=== PATIENT | female | born 1990 | race Caucasian/White ===

== ENCOUNTER 2017-02-06 09:48 | Observation (INO) | payer MEDICAID ==
[~2017-02-06 09:48] MED LIST: APAP325 M1 PO; COLACE100 MG PO; IBUPROFEN800 MG PO; PEPCID20 MG PO; PRENATAL VITAMI1 TAB PO; PRENATAL1 EACH
== END 2017-02-06 10:45 ==
LOC: LDR 09:48
PROVIDERS: ADMIT Obstetrics & Gynecology
DX: O47.03 False labor before 37 completed weeks of gestation, third trimester (principal); Z3A.28 28 weeks gestation of pregnancy

== ENCOUNTER 2017-02-20 16:04 | Observation (INO) | payer MEDICAID ==
[2017-02-20 16:50] LABS: URINE TOTAL PROTEIN-RANDOM 36.4 mg/dl (<11.8)
[2017-02-20 16:54] LABS: BASO % 0.1 % (0-2); EOS % 0.1 % (0-7); HCT-HEMATOCRIT 37.1 % (34.0-49.0); HGB-HEMOGLOBIN 12.7 gm/dl (12.0-15.5); IMMATURE GRANULOCYTES ABSOLUTE 0.03 tho/cmm (0-0.03); IMMATURE GRANULOCYTES PERCENT 0.2 % (0-0.3); LYMPH % 14.9 % (20-45); LYMPH ABSOLUTE COUNT 1.9 tho/cmm (0.8-4.5); MCH (MEAN CORPUSCULAR HGB) 28.9 pg (28.0-32.0); MCHC MEAN CORPUSCULAR HGB CONC 34.2 % (32.0-36.0); MCV (MEAN CELL VOLUME) 84.3 fl (82.0-96.0); MEAN PLATELET VOLUME 10.1 cmc (9.4-12.4); MONO % 4.9 % (0-12); MONOCYTE ABSOLUTE COUNT 0.6 tho/cmm (0.0-1.2); NEUTROPHIL ABSOLUTE COUNT 10.2 tho/cmm (1.6-8.0); NEUTROPHIL-AUTOMATED 10.2 tho/cmm (1.6-8.0); NEUTROPHILS % 79.8 % (40-80); PLATELET COUNT 242 tho/cmm (150-450); RED CELL DISTRIBUTION WIDTH 12.8 % (12.4-16.4); WHITE BLOOD COUNT 12.8 tho/cmm (4.0-10.0)
[2017-02-20] MEDS ORDERED: KLONOPIN0.5 M1 PO (17:07)
[2017-02-20] MEDS ORDERED: ZOLOFT50 M1 PO (17:08)
[2017-02-20 17:10] LABS: ALB/GLOB RATIO 0.7 (0.8-2.0); ALKALINE PHOSPHATASE 96 U/L (33-138); ALT/SGPT 22 U/L (12-78); ANION GAP 14 mmol/L (0-20); AST/SGOT 17 U/L (10-40); BILIRUBIN,TOTAL 0.2 mg/dl (0-1.5); BLOOD UREA NITROGEN 6 mg/dl (6-24); CALCIUM 8.1 mg/dl (8.5-10.5); CARBON DIOXIDE-VENOUS 24 mmol/L (22-32); CHLORIDE 105 mmol/l (96-110); CREATININE 0.52 mg/dl (0.50-1.10); GLUCOSE 73 mg/dL (70-110); POTASSIUM 3.6 mmol/L (3.7-5.1); SODIUM 139 mmol/L (135-145); eGFR VALUE FOR BLACK >90 mL/Min
[2017-02-20 17:16] LABS: URINE PRT/CR RATIO 0.27 Ratio (0.0-0.20)
[2017-02-21 21:17] LABS: URINE CREATININE MG/DAY 1610 mg/day (720-1510)
== END 2017-02-21 22:50 ==
LOC: LDR 16:04
PROVIDERS: Advanced Practice Midwife; ADMIT Registered Nurse Lactation Consultant
DX: O16.3 Unspecified maternal hypertension, third trimester (principal); F41.9 Anxiety disorder, unspecified; F32.9 Major depressive disorder, single episode, unspecified; F17.200 Nicotine dependence, unspecified, uncomplicated; Z79.899 Other long term (current) drug therapy; Z3A.28 28 weeks gestation of pregnancy; Z85.3 Personal history of malignant neoplasm of breast
CPT/HCPCS: J0702

== ENCOUNTER 2017-02-22 19:24 | Observation (INO) | payer MEDICAID ==
[~2017-02-22 19:24] MED LIST changes: +KLONOPIN0.5 M1 PO; +ZOLOFT50 M1 PO
[2017-02-22 20:24] LABS: URINE APPEARANCE CLEAR; URINE BILIRUBIN NEGATIVE (NEG); URINE BLOOD NEGATIVE (NEG); URINE COLOR YELLOW; URINE GLUCOSE (UA) LARGE (NEG); URINE KETONE SMALL (NEG); URINE LEUKOCYTE ESTERASE NEGATIVE (NEG); URINE NITRITE NEGATIVE (NEG); URINE PROTEIN MODERATE (NEG); URINE SPECIFIC GRAVITY 1.025 (1.003-1.030)
[2017-02-22 20:34] LABS: URINE AMORPHOUS 2+; URINE BACTERIA 1+; URINE RBC RARE /[HPF] (0-5); URINE WBC RARE /[HPF] (0-5)
[2017-02-22 20:38] LABS: BASO % 0.1 % (0-2); HCT-HEMATOCRIT 35.2 % (34.0-49.0); HGB-HEMOGLOBIN 11.9 gm/dl (12.0-15.5); IMMATURE GRANULOCYTES PERCENT 1.1 % (0-0.3); LYMPH % 12.3 % (20-45); LYMPH ABSOLUTE COUNT 2.2 tho/cmm (0.8-4.5); MCHC MEAN CORPUSCULAR HGB CONC 33.8 % (32.0-36.0); MCV (MEAN CELL VOLUME) 85.6 fl (82.0-96.0); MEAN PLATELET VOLUME 10.5 cmc (9.4-12.4); MONOCYTE ABSOLUTE COUNT 1.5 tho/cmm (0.0-1.2); NEUTROPHIL ABSOLUTE COUNT 14.3 tho/cmm (1.6-8.0); NEUTROPHIL-AUTOMATED 14.3 tho/cmm (1.6-8.0); NEUTROPHILS % 78.5 % (40-80); PLATELET COUNT 245 tho/cmm (150-450); RED BLOOD COUNT 4.11 mil/cmm (4.00-5.20); RED CELL DISTRIBUTION WIDTH 12.9 % (12.4-16.4); WHITE BLOOD COUNT 18.2 tho/cmm (4.0-10.0)
[2017-02-22 20:52] LABS: ALB/GLOB RATIO 0.7 (0.8-2.0); ALBUMIN 2.7 g/dl (3.5-5.0); ALKALINE PHOSPHATASE 82 U/L (33-138); ALT/SGPT 22 U/L (12-78); BILIRUBIN,TOTAL 0.2 mg/dl (0-1.5); BLOOD UREA NITROGEN 8 mg/dl (6-24); CALCIUM 8.3 mg/dl (8.5-10.5); CARBON DIOXIDE-VENOUS 26 mmol/L (22-32); CHLORIDE 104 mmol/l (96-110); CREATININE 0.66 mg/dl (0.50-1.10); GLUCOSE 84 mg/dL (70-110); SODIUM 140 mmol/L (135-145); eGFR VALUE FOR BLACK >90 mL/Min
[2017-02-22 20:57] LABS: ANION GAP 14 mmol/L (0-20); AST/SGOT 19 U/L (10-40); POTASSIUM 3.7 mmol/L (3.7-5.1)
== END 2017-02-23 09:38 ==
LOC: LDR 19:24
PROVIDERS: Obstetrics & Gynecology; ADMIT Obstetrics & Gynecology
DX: O14.03 Mild to moderate pre-eclampsia, third trimester (principal); Z3A.31 31 weeks gestation of pregnancy
CPT/HCPCS: G0378

== ENCOUNTER 2017-03-05 21:40 | Observation (INO) | payer MEDICAID ==
[2017-03-05 22:06] LABS: URINE BILIRUBIN NEGATIVE (NEG); URINE BLOOD SMALL (NEG); URINE GLUCOSE (UA) MODERATE (NEG); URINE KETONE NEGATIVE (NEG); URINE LEUKOCYTE ESTERASE NEGATIVE (NEG); URINE NITRITE NEGATIVE (NEG); URINE PROTEIN SMALL (NEG)
[2017-03-05 22:12] LABS: URINE APPEARANCE HAZY; URINE COLOR YELLOW
[2017-03-05 22:15] LABS: URINE BACTERIA 2+; URINE RBC 0-1 /[HPF] (0-5)
[2017-03-05 22:25] LABS: BASO % 0.1 % (0-2); EOS % 0.2 % (0-7); HCT-HEMATOCRIT 36.1 % (34.0-49.0); HGB-HEMOGLOBIN 12.2 gm/dl (12.0-15.5); IMMATURE GRANULOCYTES ABSOLUTE 0.06 tho/cmm (0-0.03); IMMATURE GRANULOCYTES PERCENT 0.4 % (0-0.3); LYMPH % 15.3 % (20-45); LYMPH ABSOLUTE COUNT 2.1 tho/cmm (0.8-4.5); MCHC MEAN CORPUSCULAR HGB CONC 33.8 % (32.0-36.0); MCV (MEAN CELL VOLUME) 85.7 fl (82.0-96.0); MEAN PLATELET VOLUME 10.4 cmc (9.4-12.4); MONO % 5.2 % (0-12); MONOCYTE ABSOLUTE COUNT 0.7 tho/cmm (0.0-1.2); NEUTROPHIL ABSOLUTE COUNT 10.5 tho/cmm (1.6-8.0); NEUTROPHIL-AUTOMATED 10.5 tho/cmm (1.6-8.0); NEUTROPHILS % 78.8 % (40-80); PLATELET COUNT 218 tho/cmm (150-450); RED BLOOD COUNT 4.21 mil/cmm (4.00-5.20); RED CELL DISTRIBUTION WIDTH 13.5 % (12.4-16.4); WHITE BLOOD COUNT 13.4 tho/cmm (4.0-10.0)
[2017-03-05 22:26] LABS: URINE TOTAL PROTEIN-RANDOM 14.4 mg/dl (<11.8)
[2017-03-05 22:36] LABS: URINE PRT/CR RATIO 0.13 Ratio (0.0-0.20)
[2017-03-05 22:38] LABS: ALB/GLOB RATIO 0.6 (0.8-2.0); ALBUMIN 2.8 g/dl (3.5-5.0); ALKALINE PHOSPHATASE 103 U/L (33-138); ALT/SGPT 22 U/L (12-78); ANION GAP 15 mmol/L (0-20); AST/SGOT 13 U/L (10-40); BILIRUBIN,TOTAL 0.2 mg/dl (0-1.5); BLOOD UREA NITROGEN 8 mg/dl (6-24); CALCIUM 8.6 mg/dl (8.5-10.5); CARBON DIOXIDE-VENOUS 24 mmol/L (22-32); CHLORIDE 106 mmol/l (96-110); CREATININE 0.55 mg/dl (0.50-1.10); GLUCOSE 104 mg/dL (70-110); POTASSIUM 3.6 mmol/L (3.7-5.1); SODIUM 141 mmol/L (135-145); eGFR VALUE FOR BLACK >90 mL/Min
== END 2017-03-05 23:09 ==
LOC: LDR 21:40
PROVIDERS: ADMIT Obstetrics & Gynecology
DX: O13.3 Gestational [pregnancy-induced] hypertension without significant proteinuria, third trimester (principal); Z3A.32 32 weeks gestation of pregnancy; O99.333 Smoking (tobacco) complicating pregnancy, third trimester; F17.210 Nicotine dependence, cigarettes, uncomplicated; Z98.890 Other specified postprocedural states

== ENCOUNTER 2017-03-06 17:17 | Observation (INO) | payer MEDICAID ==
[2017-03-06 18:07] LABS: URINE PRT/CR RATIO 0.24 Ratio (0.0-0.20); URINE TOTAL PROTEIN-RANDOM 9.9 mg/dl (<11.8)
[2017-03-06 18:32] LABS: BASO % 0.1 % (0-2); EOS % 0.1 % (0-7); HGB-HEMOGLOBIN 12.2 gm/dl (12.0-15.5); IMMATURE GRANULOCYTES ABSOLUTE 0.06 tho/cmm (0-0.03); IMMATURE GRANULOCYTES PERCENT 0.4 % (0-0.3); LYMPH % 13.3 % (20-45); LYMPH ABSOLUTE COUNT 1.9 tho/cmm (0.8-4.5); MCHC MEAN CORPUSCULAR HGB CONC 33.9 % (32.0-36.0); MCV (MEAN CELL VOLUME) 85.7 fl (82.0-96.0); MEAN PLATELET VOLUME 10.1 cmc (9.4-12.4); MONO % 5.4 % (0-12); MONOCYTE ABSOLUTE COUNT 0.8 tho/cmm (0.0-1.2); NEUTROPHIL ABSOLUTE COUNT 11.4 tho/cmm (1.6-8.0); NEUTROPHIL-AUTOMATED 11.4 tho/cmm (1.6-8.0); NEUTROPHILS % 80.7 % (40-80); PLATELET COUNT 203 tho/cmm (150-450); RED CELL DISTRIBUTION WIDTH 13.6 % (12.4-16.4); WHITE BLOOD COUNT 14.2 tho/cmm (4.0-10.0)
[2017-03-06 18:46] LABS: ALB/GLOB RATIO 0.6 (0.8-2.0); ALBUMIN 2.7 g/dl (3.5-5.0); ALKALINE PHOSPHATASE 99 U/L (33-138); ALT/SGPT 25 U/L (12-78); ANION GAP 14 mmol/L (0-20); AST/SGOT 13 U/L (10-40); BILIRUBIN,TOTAL 0.2 mg/dl (0-1.5); BLOOD UREA NITROGEN 9 mg/dl (6-24); CALCIUM 8.8 mg/dl (8.5-10.5); CARBON DIOXIDE-VENOUS 25 mmol/L (22-32); CHLORIDE 104 mmol/l (96-110); CREATININE 0.56 mg/dl (0.50-1.10); GLUCOSE 98 mg/dL (70-110); POTASSIUM 3.3 mmol/L (3.7-5.1); SODIUM 140 mmol/L (135-145); eGFR VALUE FOR BLACK >90 mL/Min
== END 2017-03-06 20:45 ==
LOC: LDR 17:17
PROVIDERS: ADMIT Registered Nurse Lactation Consultant
DX: O16.3 Unspecified maternal hypertension, third trimester (principal); O99.333 Smoking (tobacco) complicating pregnancy, third trimester; F17.210 Nicotine dependence, cigarettes, uncomplicated; O99.343 Other mental disorders complicating pregnancy, third trimester; F41.9 Anxiety disorder, unspecified; Z3A.32 32 weeks gestation of pregnancy; Z79.899 Other long term (current) drug therapy; Z98.890 Other specified postprocedural states

== ENCOUNTER 2017-03-12 02:03 | Observation (INO) | payer MEDICAID ==
[2017-03-12 02:18] LABS: URINE BILIRUBIN NEGATIVE (NEG); URINE BLOOD NEGATIVE (NEG); URINE GLUCOSE (UA) SMALL (NEG); URINE KETONE MODERATE (NEG); URINE LEUKOCYTE ESTERASE NEGATIVE (NEG); URINE NITRITE NEGATIVE (NEG); URINE PROTEIN SMALL (NEG); URINE SPECIFIC GRAVITY 1.025 (1.003-1.030)
[2017-03-12 02:21] LABS: URINE APPEARANCE CLEAR; URINE COLOR YELLOW
[2017-03-12 02:32] LABS: URINE MUCUS 2+
== END 2017-03-12 04:55 ==
LOC: LDR 02:03
PROVIDERS: ADMIT Obstetrics & Gynecology
DX: O47.03 False labor before 37 completed weeks of gestation, third trimester (principal); Z3A.33 33 weeks gestation of pregnancy; Z79.899 Other long term (current) drug therapy
CPT/HCPCS: J7030

== ENCOUNTER 2017-04-04 06:20 | Inpatient (IN) | payer MEDICAID ==
[2017-04-04 07:33] LABS: BASO % 0.2 % (0-2); EOS % 0.4 % (0-7); HCT-HEMATOCRIT 35.9 % (34.0-49.0); LYMPH % 16.5 % (20-45); LYMPH ABSOLUTE COUNT 1.9 tho/cmm (0.8-4.5); MCH (MEAN CORPUSCULAR HGB) 28.4 pg (28.0-32.0); MCHC MEAN CORPUSCULAR HGB CONC 33.4 % (32.0-36.0); MCV (MEAN CELL VOLUME) 84.9 fl (82.0-96.0); MEAN PLATELET VOLUME 10.8 cmc (9.4-12.4); MONO % 6.7 % (0-12); MONOCYTE ABSOLUTE COUNT 0.8 tho/cmm (0.0-1.2); NEUTROPHIL ABSOLUTE COUNT 8.7 tho/cmm (1.6-8.0); NEUTROPHIL-AUTOMATED 8.7 tho/cmm (1.6-8.0); NEUTROPHILS % 76.2 % (40-80); PLATELET COUNT 210 tho/cmm (150-450); RED BLOOD COUNT 4.23 mil/cmm (4.00-5.20); RED CELL DISTRIBUTION WIDTH 13.2 % (12.4-16.4); WHITE BLOOD COUNT 11.4 tho/cmm (4.0-10.0)
[2017-04-04 08:34] LABS: ALB/GLOB RATIO 0.6 (0.8-2.0); ALBUMIN 2.4 g/dl (3.5-5.0); ALKALINE PHOSPHATASE 126 U/L (33-138); ALT/SGPT 18 U/L (12-78); ANION GAP 16 mmol/L (0-20); AST/SGOT 13 U/L (10-40); BILIRUBIN,TOTAL 0.4 mg/dl (0-1.5); BLOOD UREA NITROGEN 6 mg/dl (6-24); CALCIUM 8.4 mg/dl (8.5-10.5); CARBON DIOXIDE-VENOUS 22 mmol/L (22-32); CHLORIDE 102 mmol/l (96-110); CREATININE 0.54 mg/dl (0.50-1.10); GLUCOSE 91 mg/dL (70-110); POTASSIUM 3.7 mmol/L (3.7-5.1); SODIUM 136 mmol/L (135-145); eGFR VALUE FOR BLACK >90 mL/Min
[2017-04-04 10:08] LABS: URINE TOTAL PROTEIN-RANDOM 22.4 mg/dl (<11.8)
[2017-04-04 10:35] LABS: URINE PRT/CR RATIO 0.13 Ratio (0.0-0.20)
[2017-04-05 05:42] LABS: BASO % 0.2 % (0-2); EOS % 0.3 % (0-7); HCT-HEMATOCRIT 33.2 % (34.0-49.0); IMMATURE GRANULOCYTES ABSOLUTE 0.04 tho/cmm (0-0.03); IMMATURE GRANULOCYTES PERCENT 0.3 % (0-0.3); LYMPH % 18.4 % (20-45); LYMPH ABSOLUTE COUNT 2.4 tho/cmm (0.8-4.5); MCH (MEAN CORPUSCULAR HGB) 28.1 pg (28.0-32.0); MCHC MEAN CORPUSCULAR HGB CONC 33.1 % (32.0-36.0); MCV (MEAN CELL VOLUME) 84.7 fl (82.0-96.0); MEAN PLATELET VOLUME 10.7 cmc (9.4-12.4); MONO % 6.8 % (0-12); MONOCYTE ABSOLUTE COUNT 0.9 tho/cmm (0.0-1.2); NEUTROPHIL ABSOLUTE COUNT 9.5 tho/cmm (1.6-8.0); NEUTROPHIL-AUTOMATED 9.5 tho/cmm (1.6-8.0); PLATELET COUNT 182 tho/cmm (150-450); RED BLOOD COUNT 3.92 mil/cmm (4.00-5.20); RED CELL DISTRIBUTION WIDTH 13.4 % (12.4-16.4); WHITE BLOOD COUNT 12.9 tho/cmm (4.0-10.0)
[2017-04-05] MEDS ORDERED: IBUPROFEN800 M1 PO (09:24)
== END 2017-04-05 20:15 | DRG 775 ==
LOC: LDR 06:20 → OBGE 20:09
PROVIDERS: ADMIT Registered Nurse Lactation Consultant
PROC: 10E0XZZ Delivery of Products of Conception, External Approach (ICD-10-PCS; principal; 2017-04-04)
PROC: 3E033VJ Introduction of Other Hormone into Peripheral Vein, Percutaneous Approach (ICD-10-PCS; 2017-04-04)
PROC: 10907ZC Drainage of Amniotic Fluid, Therapeutic from Products of Conception, Via Natural or Artificial Opening (ICD-10-PCS; 2017-04-04)
PROC: 4A1HXCZ Monitoring of Products of Conception, Cardiac Rate, External Approach (ICD-10-PCS; 2017-04-04)
DX: O14.04 Mild to moderate pre-eclampsia, complicating childbirth (principal); Z37.0 Single live birth; Z3A.37 37 weeks gestation of pregnancy
CPT/HCPCS: J2590